=== PATIENT | female | born 1940 | race Caucasian/White ===

== ENCOUNTER 2016-07-07 15:29 | Outpatient (CLI) | payer MEDICARE ==
[2016-07-07 16:09] LABS: Prothrombin Time 32.5 SEC (12.0-14.7)
== END 2016-07-07 15:30 | disposition home or self-care (01) ==
LOC: HPCALD 15:29
PROVIDERS: ATTEND Family Medicine
DX: I48.91 Unspecified atrial fibrillation (principal); E53.8 Deficiency of other specified B group vitamins
CPT/HCPCS: 36415; 82607; 85610

== ENCOUNTER 2016-08-04 11:58 | Outpatient (CLI) | payer MEDICARE ==
[2016-08-04 13:28] LABS: #Basophils 0.1 thou/uL (0.0-0.2); #Eosinphils 0.3 thou/uL (0.0-0.7); #Lymphocytes 2.3 thou/uL (1.20-3.40); #Monocytes 0.6 thou/uL (0.11-0.59); #Neutrophils 9.4 thou/uL (1.40-6.50); %Eosinophils 2.6 % (0.0-10.0); Hematocrit 35.5 % (36.0-47.0); Mean Platelet Volume 9.2 fL (7.4-10.4); White Blood Cell (WBC) Count 12.8 thou/uL (4.8-10.8)
[2016-08-04 13:34] LABS: Prothrombin Time 15.5 SEC (12.0-14.7)
[2016-08-04 13:54] LABS: ALT (SGPT) 9 U/L (0-55); AST (SGOT) 10 U/L (5-34); Alkaline Phosphatase 72 U/L (40-150); Anion Gap 17 mmol/L (10-20); BUN (Urea Nitrogen) 36 mg/dL (9.8-20.1); Bilirubin, Total 0.4 mg/dL (0.2-1.2); Calc. Creatinine Clearance 0 mL/min (70-130); Calcium 9.7 mg/dL (7.8-10.44); Carbon Dioxide 31 mmol/L (23-31); Chloride 97 mmol/L (98-107); Estimated GFR-MDRD 51; Globulin 2.6 g/dL (2.4-3.5); LDL Cholesterol, Calculated 80 mg/dL; Protein, Total 6.8 g/dL (5.8-8.1)
[2016-08-04 14:43] LABS: Hemoglobin A1c 7.6 % (4.0-6.0)
== END 2016-08-04 11:59 | disposition home or self-care (01) ==
LOC: HPCALD 11:58
PROVIDERS: ATTEND Family Medicine
DX: E11.9 Type 2 diabetes mellitus without complications (principal); I10 Essential (primary) hypertension; E78.5 Hyperlipidemia, unspecified; Z79.01 Long term (current) use of anticoagulants; E53.8 Deficiency of other specified B group vitamins; E55.9 Vitamin D deficiency, unspecified
CPT/HCPCS: 36415; 80053; 80061; 82306; 82607; 83036; 85025; 85610

== ENCOUNTER 2016-09-01 11:39 | Outpatient (CLI) | payer MEDICARE ==
[2016-09-01 12:20] LABS: Prothrombin Time 19.6 SEC (12.0-14.7)
== END 2016-09-01 11:40 ==
LOC: HPCALD 11:39
PROVIDERS: ATTEND Family Medicine
DX: I48.91 Unspecified atrial fibrillation (principal)
CPT/HCPCS: 36415; 85610

== ENCOUNTER 2016-09-22 10:02 | Outpatient (CLI) | payer MEDICARE ==
[2016-09-22 11:08] LABS: INR-International Normal Ratio 1.7; Prothrombin Time 20.5 SEC (12.0-14.7)
== END 2016-09-22 10:03 | disposition home or self-care (01) ==
LOC: HPCALD 10:02
PROVIDERS: ATTEND Family Medicine
DX: I48.91 Unspecified atrial fibrillation (principal)
CPT/HCPCS: 36415; 85610

== ENCOUNTER 2016-10-27 11:26 | Outpatient (CLI) | payer MEDICARE ==
[2016-10-27 12:04] LABS: INR-International Normal Ratio 2.2; Prothrombin Time 24.9 SEC (12.0-14.7)
== END 2016-10-27 11:27 | disposition home or self-care (01) ==
LOC: HPCALD 11:26
PROVIDERS: ATTEND Family Medicine
DX: I48.91 Unspecified atrial fibrillation (principal)
CPT/HCPCS: 36415; 85610

== ENCOUNTER 2016-11-24 13:37 | Outpatient (CLI) | payer MEDICARE ==
[2016-11-24 14:35] LABS: INR-International Normal Ratio 1.5; Prothrombin Time 18.2 SEC (12.0-14.7)
[2016-11-24 15:54] LABS: Hemoglobin A1c 7.4 % (4.0-6.0)
== END 2016-11-24 13:38 | disposition home or self-care (01) ==
LOC: HPCALD 13:37
PROVIDERS: ATTEND Family Medicine
DX: E11.9 Type 2 diabetes mellitus without complications (principal); I48.91 Unspecified atrial fibrillation; M10.9 Gout, unspecified; Z79.01 Long term (current) use of anticoagulants
CPT/HCPCS: 36415; 83036; 84550; 85610

== ENCOUNTER 2016-12-10 10:26 | Outpatient (CLI) | payer MEDICARE ==
[2016-12-10 11:00] LABS: INR-International Normal Ratio 1.7; Prothrombin Time 20.3 SEC (12.0-14.7)
[2016-12-10 11:18] LABS: #Basophils 0.1 thou/uL (0.0-0.2); #Eosinphils 0.3 thou/uL (0.0-0.7); #Lymphocytes 1.4 thou/uL (1.20-3.40); #Monocytes 0.6 thou/uL (0.11-0.59); #Neutrophils 6.4 thou/uL (1.40-6.50); %Basophils 0.9 % (0.0-1.0); %Eosinophils 3.3 % (0.0-10.0); %Lymphocytes 15.8 % (21.0-51.0); %Monocytes 7.3 % (0.0-10.0); %Neutrophils 72.7 % (42.0-75.0); Hemoglobin 10.8 g/dL (12.0-16.0); Mean Corpuscular HGB CONC 32.3 g/dL (32.0-36.0); Mean Corpuscular Hemoglobin 29.3 pg (27.0-31.0); Mean Corpuscular Volume 90.8 fl (81.0-99.0); Mean Platelet Volume 9.6 fL (7.4-10.4); Platelet Count 240 thou/uL (130-400); RBC Distribution Width 12.4 % (11.5-14.5); White Blood Cell (WBC) Count 8.9 thou/uL (4.8-10.8)
[2016-12-10 11:25] LABS: ALT (SGPT) 15 U/L (8-55); AST (SGOT) 12 U/L (5-34); Albumin 4.1 g/dL (3.4-4.8); Alkaline Phosphatase 60 U/L (40-150); Anion Gap 15 mmol/L (10-20); BUN (Urea Nitrogen) 20 mg/dL (9.8-20.1); Bilirubin, Total 0.5 mg/dL (0.2-1.2); Calc. Creatinine Clearance 0 mL/min (70-130); Calcium 9.1 mg/dL (7.8-10.44); Carbon Dioxide 36 mmol/L (23-31); Chloride 95 mmol/L (98-107); Estimated GFR-MDRD 61; Globulin 2.6 g/dL (2.4-3.5); Glucose 227 mg/dL (83-110); Potassium 4.6 mmol/L (3.5-5.1); Protein, Total 6.7 g/dL (6.0-8.3); Sodium 141 mmol/L (136-145)
== END 2016-12-10 10:27 | disposition home or self-care (01) ==
LOC: HPCALD 10:26
PROVIDERS: ATTEND Family Medicine
DX: E53.8 Deficiency of other specified B group vitamins (principal); R53.83 Other fatigue; I48.91 Unspecified atrial fibrillation
CPT/HCPCS: 36415; 80053; 82607; 84443; 85025; 85610

== ENCOUNTER 2016-12-22 11:30 | Outpatient (CLI) | payer MEDICARE ==
[2016-12-22 15:09] LABS: INR-International Normal Ratio 2.8; Prothrombin Time 30.4 SEC (12.0-14.7)
== END 2016-12-22 11:31 | disposition home or self-care (01) ==
LOC: HPCALD 11:30
PROVIDERS: ATTEND Family Medicine
DX: I48.91 Unspecified atrial fibrillation (principal)
CPT/HCPCS: 36415; 85610

== ENCOUNTER 2017-01-19 11:31 | Outpatient (CLI) | payer MEDICARE ==
[2017-01-19 12:20] LABS: INR-International Normal Ratio 2.2; Prothrombin Time 25.2 SEC (12.0-14.7)
== END 2017-01-19 11:32 | disposition home or self-care (01) ==
LOC: HPCALD 11:31
PROVIDERS: ATTEND Family Medicine
DX: I48.91 Unspecified atrial fibrillation (principal)
CPT/HCPCS: 36415; 85610

== ENCOUNTER 2017-02-16 13:13 | Outpatient (CLI) | payer MEDICARE ==
[2017-02-16 13:44] LABS: INR-International Normal Ratio 2.4; Prothrombin Time 26.6 SEC (12.0-14.7)
== END 2017-02-16 13:14 | disposition home or self-care (01) ==
LOC: HPCALD 13:13
PROVIDERS: ATTEND Family Medicine
DX: Z51.81 Encounter for therapeutic drug level monitoring (principal); I48.91 Unspecified atrial fibrillation; Z79.01 Long term (current) use of anticoagulants
CPT/HCPCS: 36415; 85610

== ENCOUNTER 2017-03-16 13:29 | Outpatient (CLI) | payer MEDICARE ==
[2017-03-16 13:45] LABS: Prothrombin Time 23.6 SEC (12.0-14.7)
== END 2017-03-16 13:30 | disposition home or self-care (01) ==
LOC: HPCALD 13:29
PROVIDERS: ATTEND Family Medicine
DX: Z51.81 Encounter for therapeutic drug level monitoring (principal); I48.91 Unspecified atrial fibrillation; Z79.01 Long term (current) use of anticoagulants
CPT/HCPCS: 36415; 85610